=== PATIENT | male | born 1970 ===

== ENCOUNTER 2022-02-26 11:45 | Inpatient (IN) | payer OTHER ==
[~2022-02-26] VITALS: Ht 162.6 cm; Wt 79.8 kg
[2022-02-26] MEDS ORDERED: LIPITOR40 M1 PO (13:33)
[2022-02-26] MEDS ORDERED: ACCUPRIL40 MG PO (13:33)
[2022-02-26] MEDS ORDERED: CLONAZEPAM0.5 MG PO (13:34)
[2022-02-26] MEDS ORDERED: DEXILANT60 MG PO (13:34)
[2022-02-26] MEDS ORDERED: LIBRAX PO (13:35)
[2022-02-26] MEDS ORDERED: LEVSIN0.125 MG PO (13:35)
[2022-03-03] MEDS ORDERED: CHLORDIAZEPOXI1 EACH (08:36)
[2022-03-03] MEDS ORDERED: KETO10TA2 PO (13:33)
[2022-03-03] MEDS ORDERED: ULTRAM50 MG PO (13:33)
[2022-03-03] MEDS ORDERED: LEVSIN/SL0.125 MG SL (13:33)
[2022-03-03] MEDS ORDERED: INTESTINEX680 M1 PO (13:33)
== END 2022-03-03 14:38 | disposition home or self-care (01) | DRG 331 ==
LOC: O/R 02-28 05:26 → SURG 02-28 05:26
PROVIDERS: ADMIT Surgery; ATTEND Surgery
PROC: 0DBP4ZZ Excision of Rectum, Percutaneous Endoscopic Approach (ICD-10-PCS; 2022-02-28)
PROC: 0DJD8ZZ Inspection of Lower Intestinal Tract, Via Natural or Artificial Opening Endoscopic (ICD-10-PCS; 2022-02-28)
PROC: 3E0F7SF Introduction of Other Gas into Respiratory Tract, Via Natural or Artificial Opening (ICD-10-PCS; 2022-02-28)
PROC: 0DTN4ZZ Resection of Sigmoid Colon, Percutaneous Endoscopic Approach (ICD-10-PCS; principal; 2022-02-28 07:00)
DX: K57.32 Diverticulitis of large intestine without perforation or abscess without bleeding (principal); M47.897 Other spondylosis, lumbosacral region; R19.4 Change in bowel habit; R10.9 Unspecified abdominal pain; I10 Essential (primary) hypertension